=== PATIENT | male | born 2000 | race Hispanic/Latino ===

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

== ENCOUNTER 2022-07-23 10:41 | Emergency (ER) | payer MEDICAID ==
[~2022-07-23] VITALS: Ht 188 cm; Wt 154.2 kg
[2022-07-23] MEDS ORDERED: KETOROLAC 60 MG VIAL (30MG/ML) IM ONE (11:30)
[2022-07-23 12:08] VITALS: BP 124/81
== END 2022-07-23 12:12 | disposition home or self-care (01) ==
LOC: EDH 10:41
DX: K08.89 Other specified disorders of teeth and supporting structures (principal); R68.84 Jaw pain; M79.641 Pain in right hand
CPT/HCPCS: 99283; 96372; J1885

== ENCOUNTER 2023-06-10 14:27 | Emergency (ER) | payer MEDICAID, OTHER ==
[~2023-06-10] VITALS: Ht 190.5 cm; Wt 136.1 kg
[2023-06-10] MEDS ORDERED: AMOX1TAB16 PO (17:06)
[2023-06-10 17:38] VITALS: BP 121/75; PULSE 95; RESP 20; O2SAT 97
[2023-06-10] MEDS: AMOX/CLAV 875/125MG TAB PO ONE (18:30)
[2023-06-10] MEDS: IBUPROFEN 800 MG TAB PO ONE (18:30)
[2023-06-10] MEDS: TETANUS/DIPHTHERIA TOXOID [ADULT] 0.5 ML VIAL IM ONE (18:32)
== END 2023-06-10 18:52 | disposition home or self-care (01) ==
LOC: EDH 14:27
DX: S41.131A Puncture wound without foreign body of right upper arm, initial encounter (principal); F41.9 Anxiety disorder, unspecified; Z98.890 Other specified postprocedural states; W54.0XXA Bitten by dog, initial encounter; Y93.89 Activity, other specified; Y92.89 Other specified places as the place of occurrence of the external cause; Y99.8 Other external cause status
CPT/HCPCS: 90471; 90714